=== PATIENT | male | born 1945 | race Caucasian/White ===

== ENCOUNTER 2017-05-18 08:54 | Inpatient (IN) | payer MEDICARE ==
[2017-05-11 14:40] LABS: BASOPHILS % (AUTO) 0.4 % (0-1); EOSINOPHILS # (AUTO) 0.1 X10'3 (0-0.9); EOSINOPHILS % (AUTO) 1.8 % (0-6); LYMPHOCYTES # (AUTO) 1.9 X10'3 (1.1-4.8); LYMPHOCYTES % (AUTO) 29.8 % (21-51); MEAN CORPUSCULAR HEMOGLOBIN 24.6 PG (27.0-31.0); MEAN CORPUSCULAR HGB CONC 32.7 % (33.0-36.5); MEAN CORPUSCULAR VOLUME 75.2 FL (78-98); MEAN PLATELET VOLUME 8.7 FL (7.4-10.4); MONOCYTES # (AUTO) 0.7 X10'3 (0-0.9); NEUTROPHILS # (AUTO) 3.6 X10'3 (1.8-7.7); PRE OP HEMATOCRIT 40.5 % (42.0-52.0); PRE OP HEMOGLOBIN 13.3 g/dL (14.0-17.9); PRE OP PLATELET COUNT 253 X10'3 (140-440); RED BLOOD COUNT 5.39 X10'6 (4.70-6.10); RED CELL DISTRIBUTION WIDTH 15.8 % (11.5-14.5)
[2017-05-11 14:51] LABS: ALBUMIN 3.7 G/DL (3.4-5.0); ALKALINE PHOSPHATASE 110 IU/L (46-116); BLOOD UREA NITROGEN 25 MG/DL (7-18); BUN/CREATININE RATIO 34.7 (5.4-32.0); CALCIUM 9.9 MG/DL (8.5-10.1); CHLORIDE 100 MMOL/L (99-107); CREATININE 0.72 MG/DL (0.60-1.10); PRE OP ALT 15 U/L (30-65); PRE OP ANION GAP 9 (8-16); PRE OP AST 13 U/L (10-37); PRE OP BILIRUB, TOTAL 0.3 MG/DL (0.0-1.0); PRE OP GLUCOSE 102 MG/DL (70-104); PRE OP SODIUM 141 MMOL/L (135-145); TOTAL CARBON DIOXIDE 31.9 MMOL/L (24-32); TOTAL PROTEIN 7.4 G/DL (6.4-8.2); eGFR > 90 ML/MIN
[2017-05-11 14:53] LABS: PRE OP POTASSIUM 3.3 MMOL/L (3.4-5.1)
[2017-05-18] VITALS (18 sets, daily range): BP systolic 89–127; BP diastolic 44–68
[~2017-05-18] VITALS: Ht 175.3 cm; Wt 74.4 kg
[~2017-05-18 08:54] MED LIST: AMLO10TA4 PO; ASPI-12 PO; BACL20TA PO; CLOP75TA15 PO; GABA100C PO; HYDR25TA4 PO; LOSA100T28 PO; MELO-102 PO; MULT1TAB74 PO; SIMV20TA PO; cefazolin/dext.iso 2gm/50ml 50 ML IV ONE; famotidine 20mg tablet PO ONE; ringers solution, lacted 1,000 ML IV SCH; vancomycin inj 1,500 MG in normal saline 300ml IV soln IV ONE
[2017-05-18] MEDS ORDERED: LIDOcaine 1% (10mg/ml) 2ml vial ONE (09:59)
[2017-05-18 11:16] LABS: ISTAT ANION GAP 12 (8-12); ISTAT BUN 23 mg/dL (6-19); ISTAT CL 99 mmol/L (99-107); ISTAT CREATININE 0.8 mg/dL (0.8-1.3); ISTAT GLUCOSE 76 mg/dL (70-104); ISTAT HGB 14.6 g/dl (14.0-18.0); ISTAT Hct 43 %PCV (42-52); ISTAT IONIZED CALCIUM 1.17 mmol/L (1.03-1.32); ISTAT K 3.6 mmol/L (3.5-5.1); ISTAT NA 139 mmol/L (135-145); ISTAT TOTAL CO2 28 mmol/L (24-32); ISTAT eGFR > 90 ML/MIN; POC BUN/CREATININE RATIO 28.8 (5.4-32.0)
[2017-05-18] MEDS ORDERED: vancomycin 1,000mg inj ONE (11:51)
[2017-05-18] MEDS ORDERED: ketorolac trometh. 30mg/ml inj. ONE ×2 (11:51→15:31)
[2017-05-18] MEDS ORDERED: ROPIVAcaine 0.5% (5mg/ml) 30ml vial ONE ×2 (11:51→11:55)
[2017-05-18] MEDS ORDERED: dexamethasone sod phosphate 4mg/ml inj. ONE (14:00)
[2017-05-18] MEDS ORDERED: sevoflurane 250ml liquid IH ONE (14:00)
[2017-05-18] MEDS ORDERED: fentaNYL/PF 50MCG/1 ML 2ML syringe ONE ×3 (14:05→15:41)
[2017-05-18] MEDS ORDERED: midazolam 2 mg/2 ml injection ONE (14:05)
[2017-05-18] MEDS ORDERED: propofol inj 20 ML IV ONE (14:18)
[2017-05-18] MEDS ORDERED: ondansetron/PF 4mg/2ml inj ONE (14:18)
[2017-05-18] MEDS ORDERED: ePHEDrine 50MG/ML INJ. ONE (14:21)
[2017-05-18] MEDS ORDERED: ringers solution, lacted 1,000 ML IV SCH (14:47)
[2017-05-18] MEDS ORDERED: labetalol 5mg/ml 20ml inj. IV PRN (14:50)
[2017-05-18] MEDS ORDERED: morphine 2 MG/ML inj. syringe IV PRN ×2 (14:50)
[2017-05-18] MEDS ORDERED: ondansetron/PF 4mg/2ml inj IV PRN ×2 (14:50→17:40)
[2017-05-18] MEDS ORDERED: hydrALAZINE 20mg/ml inj. IV PRN (14:50)
[2017-05-18] MEDS ORDERED: fentaNYL/PF 50MCG/1 ML 2ML syringe IV PRN ×2 (14:50)
[2017-05-18] MEDS ORDERED: albumin (Human) 5% 250ml 250 ML IV ONE ×3 (16:08→16:18)
[2017-05-18 16:19] LABS: APPEARANCE,SYNOVIAL FLUID CLOUDY; COLOR,SYNOVIAL FLUID RED; SYN RBC 410000 /CU MM (0); SYN WBC 3000 /CU MM (0-200)
[2017-05-18 17:31] LABS: ISTAT ANION GAP 12 (8-12); ISTAT BUN 18 mg/dL (6-19); ISTAT CL 100 mmol/L (99-107); ISTAT CREATININE 0.7 mg/dL (0.8-1.3); ISTAT GLUCOSE 126 mg/dL (70-104); ISTAT HGB 9.9 g/dl (14.0-18.0); ISTAT Hct 29 %PCV (42-52); ISTAT IONIZED CALCIUM 1.27 mmol/L (1.03-1.32); ISTAT K 3.4 mmol/L (3.5-5.1); ISTAT NA 139 mmol/L (135-145); ISTAT TOTAL CO2 27 mmol/L (24-32); ISTAT eGFR > 90 ML/MIN; POC BUN/CREATININE RATIO 25.7 (5.4-32.0)
[2017-05-18] MEDS ORDERED: magnesium hydroxide 30ml (MOM) UD suspension PO PRN (17:40)
[2017-05-18] MEDS ORDERED: diphenhydrAMINE 25mg capsule PO PRN ×2 (17:40)
[2017-05-18] MEDS ORDERED: oxyCODONE IR 5mg (immed. release) tablet PO PRN ×2 (17:40)
[2017-05-18] MEDS ORDERED: baclofen 10mg tablet PO PRN (17:40)
[2017-05-18] MEDS ORDERED: HYDROmorphone inj. 0.5 MG/0.5 ML DISP.SYRIN IV PRN ×2 (17:40)
[2017-05-18] MEDS ORDERED: acetaminophen 325mg tablet PO PRN (17:40)
[2017-05-18] MEDS ORDERED: tranexamic acid inj. 0 MG in normal saline 100ml IV soln 100 ML IV ONE (17:40)
[2017-05-18] MEDS ORDERED: bisacodyl 10mg suppository rectal RC PRN (17:40)
[2017-05-18] MEDS ORDERED: gabapentin 100mg capsule PO SCH (18:00)
[2017-05-18] MEDS ORDERED: vancomycin/NS 1 GM ADD-VANTAGE 250 ML IV SCH (20:00)
[2017-05-18] MEDS: potassium cl 20mEq in 1/2 NS 1,000 ML IV SCH (20:45)
[2017-05-18] MEDS: acetaminophen 325mg tablet PO SCH (20:50)
[2017-05-18] MEDS: gabapentin 300mg capsule PO SCH (20:50)
[2017-05-18] MEDS ORDERED: sennosides 8.6mg tablet PO SCH (21:00)
[2017-05-18] MEDS: ketorolac tromethamine 15mg/ml inj. IV SCH (21:27)
[2017-05-18] MEDS: cefazolin 1gm/NS 100mL 100 ML IV SCH (23:45)
[2017-05-19] MEDS: potassium cl 20mEq in 1/2 NS 1,000 ML IV SCH (01:40)
[2017-05-19 03:00] VITALS: BP 112/72
[2017-05-19] MEDS: ketorolac tromethamine 15mg/ml inj. IV SCH ×3 (03:01→13:55)
[2017-05-19] MEDS: acetaminophen 325mg tablet PO SCH ×3 (03:02→13:56)
[2017-05-19 05:48] LABS: BASOPHILS % (AUTO) 0.1 % (0-1); EOSINOPHILS # (AUTO) 0.1 X10'3 (0-0.9); EOSINOPHILS % (AUTO) 1.1 % (0-6); HEMATOCRIT 24.1 % (42.0-52.0); HEMOGLOBIN 8.1 g/dl (14.0-17.9); LYMPHOCYTES # (AUTO) 0.8 X10'3 (1.1-4.8); LYMPHOCYTES % (AUTO) 8.6 % (21-51); MEAN CORPUSCULAR HEMOGLOBIN 24.9 PG (27.0-31.0); MEAN CORPUSCULAR HGB CONC 33.6 % (33.0-36.5); MEAN CORPUSCULAR VOLUME 74.2 FL (78-98); MEAN PLATELET VOLUME 8.1 FL (7.4-10.4); MONOCYTES # (AUTO) 0.7 X10'3 (0-0.9); MONOCYTES % (AUTO) 7.4 % (2-12); NEUTROPHILS # (AUTO) 7.6 X10'3 (1.8-7.7); NEUTROPHILS % (AUTO) 82.8 % (42-75); PLATELET COUNT 191 X10'3 (140-440); RED BLOOD COUNT 3.25 X10'6 (4.70-6.10); RED CELL DISTRIBUTION WIDTH 16.4 % (11.5-14.5); WHITE BLOOD COUNT 9.2 X10'3 (4.5-11.0)
[2017-05-19 06:12] LABS: ANION GAP 7 (8-16); CHLORIDE 104 MMOL/L (99-107); POTASSIUM 4.2 MMOL/L (3.5-5.1); SODIUM 138 MMOL/L (135-145); TOTAL CARBON DIOXIDE 27.4 MMOL/L (24-32)
[2017-05-19 07:12] VITALS: BP 118/78
[2017-05-19 07:55] VITALS: BP 100/56
[2017-05-19] MEDS ORDERED: atorvastatin 10mg tablet PO SCH (08:00)
[2017-05-19] MEDS ORDERED: amLODIPine 5mg tablet PO SCH (08:00)
[2017-05-19] MEDS ORDERED: multivitamins, therapeutics tablet PO SCH (08:00)
[2017-05-19] MEDS ORDERED: aspirin 325mg tablet, delayed-release (Ecotrin) PO SCH (08:00)
[2017-05-19] MEDS ORDERED: clopidogrel 75mg tablet PO SCH (08:00)
[2017-05-19] MEDS ORDERED: losartan 50mg tablet PO SCH (08:00)
[2017-05-19] MEDS ORDERED: HYDROchlorothiazide 25mg tablet PO SCH (08:00)
[2017-05-19] MEDS: cefazolin 1gm/NS 100mL 100 ML IV SCH (08:04)
[2017-05-19] MEDS: gabapentin 300mg capsule PO SCH ×2 (08:07→13:55)
[2017-05-19] MEDS ORDERED: aspirin 325mg tablet PO SCH (08:30)
[2017-05-19 10:26] VITALS: BP 102/54
[2017-05-19] MEDS ORDERED: OXYC-150 PO (13:02)
[2017-05-19 14:00] VITALS: BP 127/75
[2017-05-19 14:19] VITALS: BP 120/74
[2017-05-20] MEDS ORDERED: celeCOXIB 100mg capsule PO SCH (08:00)
[2017-05-20] MEDS ORDERED: naproxen 500mg tablet PO SCH (08:00)
[2017-05-20] MEDS ORDERED: acetaminophen 325mg tablet PO PRN (17:40)
== END 2017-05-19 15:43 | disposition home health service (06) | DRG 467 ==
LOC: PAS IN 08:54 → EDSTATUS 13:30 → ORTHO 4S 18:50
PROVIDERS: ADMIT Orthopaedic Surgery; ATTEND Orthopaedic Surgery
PROC: 0SPD08Z Removal of Spacer from Left Knee Joint, Open Approach (ICD-10-PCS; 2017-05-18)
PROC: 0SRD0J9 Replacement of Left Knee Joint with Synthetic Substitute, Cemented, Open Approach (ICD-10-PCS; principal; 2017-05-18 13:55)
DX: T84.54XA Infection and inflammatory reaction due to internal left knee prosthesis, initial encounter (principal); D62 Acute posthemorrhagic anemia; E78.5 Hyperlipidemia, unspecified; I10 Essential (primary) hypertension; G89.29 Other chronic pain; I25.10 Atherosclerotic heart disease of native coronary artery without angina pectoris; Y84.8 Other medical procedures as the cause of abnormal reaction of the patient, or of later complication, without mention of misadventure at the time of the procedure; Y79.2 Prosthetic and other implants, materials and accessory orthopedic devices associated with adverse incidents; Z86.73 Personal history of transient ischemic attack (TIA), and cerebral infarction without residual deficits
CPT/HCPCS: 36415; 80047; 80051; 80053; 85025; 86885; 86900; 86901; 87070; 87075; 89051; 97110; 97116; 97161; A6255; A6455; A7000; C1713; C1758; C1776; J0690; J1100; J1885; J2250; J2405; J2704; J2795; J3010; J3370; J3490; J7030; J7120; P9045

== ENCOUNTER 2019-05-23 05:22 | Day surgery (SDC) | payer MEDICARE ==
[2019-05-15 16:27] LABS: BASOPHILS % (AUTO) 0.5 % (0-1); EOSINOPHILS # (AUTO) 0.1 X10'3 (0-0.9); EOSINOPHILS % (AUTO) 2.3 % (0-6); LYMPHOCYTES # (AUTO) 1.3 X10'3 (1.1-4.8); LYMPHOCYTES % (AUTO) 28.1 % (21-51); MEAN CORPUSCULAR HEMOGLOBIN 23.2 PG (27.0-31.0); MEAN CORPUSCULAR HGB CONC 31.7 g/dL (33.0-36.5); MEAN CORPUSCULAR VOLUME 73.1 FL (78-98); MEAN PLATELET VOLUME 8.3 FL (7.4-10.4); MONOCYTES # (AUTO) 0.6 X10'3 (0-0.9); MONOCYTES % (AUTO) 11.7 % (2-12); NEUTROPHILS # (AUTO) 2.7 X10'3 (1.8-7.7); NEUTROPHILS % (AUTO) 57.4 % (42-75); PRE OP HEMOGLOBIN 11.7 g/dL (14.0-17.9); PRE OP PLATELET COUNT 266 X10'3 (140-440); RED BLOOD COUNT 5.07 X10'6 (4.70-6.10); RED CELL DISTRIBUTION WIDTH 20.7 % (11.5-14.5)
[2019-05-15 16:36] LABS: ALBUMIN 3.5 G/DL (3.4-5.0); ALBUMIN/GLOBULIN RATIO 1.1 (1.1-1.5); ALKALINE PHOSPHATASE 87 IU/L (46-116); BLOOD UREA NITROGEN 19 MG/DL (7-18); BUN/CREATININE RATIO 24.7 (5.4-32.0); CALCIUM 9.1 MG/DL (8.5-10.1); CHLORIDE 102 MMOL/L (99-107); CREATININE 0.77 MG/DL (0.60-1.10); PRE OP ALT 19 U/L (30-65); PRE OP ANION GAP 4 (8-16); PRE OP AST 18 U/L (10-37); PRE OP BILIRUB, TOTAL 0.4 MG/DL (0.0-1.0); PRE OP GLUCOSE 80 MG/DL (70-104); PRE OP PROTIME 10.1 SECONDS (9.0-12.0); PRE OP SODIUM 142 MMOL/L (135-145); TOTAL PROTEIN 6.8 G/DL (6.4-8.2); eGFR > 90 ML/MIN
[2019-05-15 17:37] LABS: PLATELET ESTIMATE NORMAL
[2019-05-15 17:38] LABS: ANISOCYTOSIS 3+; ELLIPTOCYTES 2+; HYPOCHROMASIA 1+; MICROCYTOSIS 1+; POLYCHROMASIA 1+
[~2019-05-23] VITALS: Ht 172.7 cm; Wt 79.2 kg
[2019-05-23] VITALS (21 sets, daily range): BP systolic 98–137; BP diastolic 50–78
[~2019-05-23 05:22] MED LIST changes: -LOSA100T28 PO; +LOSA100T57 PO; +PRAV20TA4 PO; -SIMV20TA PO; -cefazolin/dext.iso 2gm/50ml 50 ML IV ONE; -famotidine 20mg tablet PO ONE; -vancomycin inj 1,500 MG in normal saline 300ml IV soln IV ONE
[2019-05-23] MEDS ORDERED: tranexamic acid inj. 770 MG in normal saline 100ml IV soln 100 ML IV ONE ×2 (05:30→06:30)
[2019-05-23] MEDS ORDERED: famotidine 20mg tablet PO ONE (05:30)
[2019-05-23] MEDS ORDERED: vancomycin inj 1,500 MG in normal saline 300ml IV soln IV ONE (05:30)
[2019-05-23] MEDS ORDERED: cefazolin/dext.iso 2gm/50ml 50 ML IV ONE (05:30)
[2019-05-23] MEDS ORDERED: potassium Cl 10 mEq/100mL bag IV ONE (06:35)
[2019-05-23] MEDS ORDERED: potassium CL 10mEq/100ml bag 100 ML IV ONE (06:40)
[2019-05-23] MEDS ORDERED: ROPIVAcaine 0.5% (5mg/ml) 30ml vial ONE ×2 (06:43→09:15)
[2019-05-23] MEDS ORDERED: ketorolac trometh. 30mg/ml inj. ONE (06:43)
[2019-05-23] MEDS ORDERED: mineral oil 10ml sterile, topical TP ONE ×2 (06:43→07:28)
[2019-05-23] MEDS ORDERED: NORMAL SALINE IV ONE (07:00)
[2019-05-23] MEDS ORDERED: POTASSIUM CL IV ONE (07:00)
[2019-05-23] MEDS ORDERED: tetracaine 1% (10mg/ml) pres. free inj. ONE (07:04)
[2019-05-23] MEDS ORDERED: midazolam 2 mg/2 ml injection ONE (07:09)
[2019-05-23] MEDS ORDERED: propofol inj 20 ML IV ONE ×3 (07:36)
[2019-05-23] MEDS ORDERED: LIDOcaine 1%/PF 5ML 10 MG/ML VIAL ONE (07:36)
[2019-05-23] MEDS ORDERED: ringers solution, lacted 1,000 ML IV SCH (09:03)
[2019-05-23] MEDS ORDERED: ROPIVAcaine 0.2%/PF PUMP/bolus 550 ML ADDCANAL SCH (09:03)
[2019-05-23] MEDS ORDERED: morphine 2 MG/ML inj. syringe IV PRN (09:05)
[2019-05-23] MEDS ORDERED: acetaminophen 1,000mg/100ml IV 100 ML IV PRN (09:05)
[2019-05-23] MEDS ORDERED: ROPIVAcaine 0.2% (10 MG/5 ML) BOLUS INJECTION ADDCANAL PRN (09:05)
[2019-05-23] MEDS ORDERED: meperidine/PF 25mg/ml syringe IV PRN ×3 (09:05)
[2019-05-23] MEDS ORDERED: morphine 4 MG/ML inj SYRINge IV PRN (09:05)
[2019-05-23] MEDS ORDERED: proCHLORperazine 10 MG/2 ml inj IV PRN (09:05)
[2019-05-23] MEDS ORDERED: ondansetron/PF 4mg/2ml inj IV PRN ×2 (09:05→09:45)
[2019-05-23] MEDS ORDERED: acetaminophen 325mg tablet PO PRN (09:45)
[2019-05-23] MEDS ORDERED: oxyCODONE IR 5mg (immed. release) tablet PO PRN ×2 (09:45)
[2019-05-23] MEDS ORDERED: bisacodyl 10mg suppository rectal RC PRN (09:45)
[2019-05-23] MEDS ORDERED: diphenhydrAMINE 25mg capsule PO PRN ×2 (09:45)
[2019-05-23] MEDS ORDERED: HYDROmorphone 1 mg/ml syringe IV PRN (09:45)
[2019-05-23] MEDS ORDERED: magnesium hydroxide 30ml (MOM) UD suspension PO PRN (09:45)
[2019-05-23] MEDS ORDERED: HYDROmorphone inj. 0.5 MG/0.5 ML DISP.SYRIN IV PRN (09:45)
--- NOTE | 2019-05-23 10:03 | NUR ---
Received from OR via BED, accompanied by Anesthesiologist DR STEEN and report given by Anesthesiologist. PT DROWSY, DENIES PAIN, RIGHT KNEE W/DRSG, LEG WRAP, POWDER PACK, PANCHO DRAIN W/GREEN LIGHT ILLUMINATION, ADDUCTOR CANAL CATHETER, CDI, BHATIA CATHETER TO GRAVITY DRAINAGE W/YELLOW URINE. Addendum: 05/23/19 at 1042 by Thania Wiley RN Amended: Links added.
--- NOTE | 2019-05-23 11:33 | NUR ---
Report called to receiving nurse. Transferred via BED, 3 BAGS OF Belongings, 1 CANE SENT W/PT TO ROOM 4011B, NURSES AID AT BEDSIDE TO RECEIVE PT, BLL, CALL LIGHT GIVEN, SIDE RAILS UP X 2. Special Issues communicated to receiving nurse. YES. Addendum: 05/23/19 at 1142 by Thania Wiley RN Amended: Links added.
[2019-05-23] MEDS ORDERED: baclofen 10mg tablet PO PRN (13:00)
[2019-05-23] MEDS: gabapentin 100mg capsule PO SCH ×2 (13:17→20:37)
[2019-05-23] MEDS: potassium cl 20mEq in 1/2 NS 1,000 ML IV SCH ×3 (13:18→20:43)
[2019-05-23] MEDS: ceFAZolin 1GM/D5W- ADD-VANTAGE 50 ML IV SCH ×2 (17:53→23:32)
[2019-05-23] MEDS: acetaminophen 325mg tablet PO SCH ×2 (17:54→20:00)
[2019-05-23] MEDS ORDERED: vancomycin/NS 1 GM ADD-VANTAGE 250 ML IV SCH (20:00)
[2019-05-23] MEDS ORDERED: sennosides 8.6mg tablet PO SCH (21:00)
[2019-05-24 02:00] VITALS: BP 147/66
[2019-05-24] MEDS: acetaminophen 325mg tablet PO SCH ×3 (02:00→13:07)
[2019-05-24 06:00] VITALS: BP 140/71
[2019-05-24 06:03] LABS: ANION GAP 7 (8-16); CHLORIDE 107 MMOL/L (99-107); POTASSIUM 3.2 MMOL/L (3.5-5.1); SODIUM 141 MMOL/L (135-145); TOTAL CARBON DIOXIDE 26.6 MMOL/L (24-32)
[2019-05-24 06:07] LABS: BASOPHILS % (AUTO) 0.3 % (0-1); EOSINOPHILS # (AUTO) 0.1 X10'3 (0-0.9); EOSINOPHILS % (AUTO) 2.3 % (0-6); HEMATOCRIT 27.1 % (42.0-52.0); HEMOGLOBIN 8.9 g/dl (14.0-17.9); LYMPHOCYTES # (AUTO) 0.8 X10'3 (1.1-4.8); LYMPHOCYTES % (AUTO) 13.8 % (21-51); MEAN CORPUSCULAR HEMOGLOBIN 24.3 PG (27.0-31.0); MEAN CORPUSCULAR VOLUME 73.8 FL (78-98); MEAN PLATELET VOLUME 8.5 FL (7.4-10.4); MONOCYTES # (AUTO) 0.6 X10'3 (0-0.9); NEUTROPHILS # (AUTO) 4.3 X10'3 (1.8-7.7); NEUTROPHILS % (AUTO) 72.6 % (42-75); PLATELET COUNT 178 X10'3 (140-440); RED BLOOD COUNT 3.67 X10'6 (4.70-6.10); RED CELL DISTRIBUTION WIDTH 19.5 % (11.5-14.5); WHITE BLOOD COUNT 5.9 X10'3 (4.5-11.0)
--- NOTE | 2019-05-24 06:15 | NUR ---
Patient in room ORTHO 4011. I have received report from VISHNU ROSENBERG and had the opportunity to ask questions and assume patient care.
--- NOTE | 2019-05-24 06:16 | NUR ---
Report given to lakeisha Wills.
[2019-05-24] MEDS ORDERED: potassium Cl 20 mEq SR tablet PO PRN (07:10)
[2019-05-24] MEDS: K and/or MAG REPLACEMENT MC SCH ×2 (07:10→08:00)
[2019-05-24] MEDS ORDERED: potassium CL 10mEq/100ml bag 100 ML IV PRN (07:10)
[2019-05-24] MEDS ORDERED: amLODIPine 5mg tablet PO SCH (08:00)
[2019-05-24] MEDS ORDERED: multivitamins, therapeutics tablet PO SCH (08:00)
[2019-05-24] MEDS ORDERED: clopidogrel 75mg tablet PO SCH (08:00)
[2019-05-24] MEDS ORDERED: atorvastatin 10mg tablet PO SCH (08:00)
[2019-05-24] MEDS ORDERED: HYDROchlorothiazide 25mg tablet PO SCH (08:00)
[2019-05-24] MEDS ORDERED: losartan 50mg tablet PO SCH (08:00)
[2019-05-24] MEDS ORDERED: non-formulary drug (Aspirin/Calcium Carbonate/Mag (Aspirin Buffered 325 Mg Tab) 1 TAB) PO SCH (08:00)
[2019-05-24] MEDS: potassium Cl 20 mEq SR tablet PO PRN ×2 (08:11→11:47)
[2019-05-24] MEDS: gabapentin 100mg capsule PO SCH ×2 (08:11→13:00)
[2019-05-24 08:21] LABS: PLATELET ESTIMATE NORMAL
[2019-05-24] MEDS: potassium cl 20mEq in 1/2 NS 1,000 ML IV SCH (08:21)
[2019-05-24 08:22] LABS: ANISOCYTOSIS 2+; ELLIPTOCYTES 1+; HYPOCHROMASIA 1+; MICROCYTOSIS 1+
[2019-05-24] MEDS ORDERED: aspirin 325mg tablet PO SCH (08:30)
[2019-05-24 10:00] VITALS: BP 110/57
--- NOTE | 2019-05-24 10:34 | NUR ---
Student documentation: I have reviewed all interventions, assessments performed and documented by Miranda Chin. Student Medication Administration: For this medication-pass time frame, all medication were reviewed, dispensed, administered and documented per hospital policy by Miranda Chin.
--- NOTE | 2019-05-24 12:00 | NUR ---
I received report from student, Miranda Brooke regyaning patient in room ORTHO 4011, I went in, met patient and assumed patient care.
--- NOTE | 2019-05-24 13:07 | NUR ---
Joint replacement consult: Pt seen by MARIANNE for written/verbal high protein ed. RD reviewed high protein needs for wound healing, immune strength, high protein foods, and protein supplementation options. RD contact information provided in case of further questions. Pt pending d/c today but is agreeable to one time chocolate ensure pudding w/ lunch prior to d/c; dietary notified. Addendum: 05/24/19 at [address] Amended: Links added.
--- NOTE | 2019-05-24 13:30 | NUR ---
PATIENT DC HOME SAFELY WITH FAMILY. ALL BELONGINGS IN POSSESSION. PATIENT VERBALIZES UNDERSTANDING OF DC INSTRUCTIONS.
[2019-05-25] MEDS ORDERED: acetaminophen 325mg tablet PO PRN (09:45)
== END 2019-05-24 13:30 | disposition home health service (06) ==
LOC: PAS IN 05:22 → INTOOBSV 05:22 → PAS 05:22 → UNDOADMOB 05:22 → EDSTATUS 07:30 → PAS IN 11:30 → ORTHO 4S 11:30 → PAS 05-24 13:30 → UNDODISOB 05-24 13:30
PROVIDERS: ATTEND Orthopaedic Surgery
DX: M17.11 Unilateral primary osteoarthritis, right knee (principal); I10 Essential (primary) hypertension; Z86.73 Personal history of transient ischemic attack (TIA), and cerebral infarction without residual deficits; I25.10 Atherosclerotic heart disease of native coronary artery without angina pectoris; D64.9 Anemia, unspecified
CPT/HCPCS: 20985; 27447; 36415; 80051; 80053; 82948; 85025; 85610; 85730; 87081; 93005; 97116; 97162; 97530; A6454; C1713; C1758; C1776; J0690; J1885; J2250; J2704; J2795; J3370; J3480; J7120; Q0163; A4215; A7000; G0378